=== PATIENT | male | born 1985 | race Caucasian/White ===

== ENCOUNTER 2016-11-13 22:19 | Emergency (ER) | payer MEDICAID ==
[2016-11-13 22:35] VITALS: TEMP 98.1
[2016-11-13 23:40] LABS: % IMMATURE GRANULYOCYTES 0.4 % (0.0-1.1); ABSOLUTE IMMATURE GRANULOCYTES 0.03 10^3/uL (0.00-0.10); ADD DIFF? NO; ADD MORPH? NO; ADD SCAN? NO; ATYPICAL LYMPHOCYTE FLAG 30 (0-99); FRAGMENT RBC FLAG 0 (0-99); HEMATOCRIT 40.5 % (40.0-51.0); LEFT SHIFT FLG 0 (0-99); LIPEMIA HEMOLYSIS FLAG 90 (0-99); MEAN CELL HEMOGLOBIN 33.2 pg (27.9-34.1); MEAN CELL VOLUME 89.6 fL (81.5-99.8); MEAN PLATELET VOLUME 9.1 fL (8.7-11.7); PLATELET CLUMPS FLAG 10 (0-99); PLATELET COUNT 181 10^3/uL (150-400); RED BLOOD CELL COUNT 4.52 10^6/uL (4.40-6.38); RED CELL DISTRIBUTION WIDTH 12.2 % (11.5-15.2)
[2016-11-13 23:49] LABS: ANION GAP 24 mEq/L (8-16); CALCIUM 9.1 mg/dL (8.5-10.4); CARBON DIOXIDE 18 mEq/l (22-31); CHLORIDE 102 mEq/L (97-110); CREATININE 0.8 mg/dL (0.7-1.3); GLOMERULAR FILTRATION RATE > 60; GLUCOSE 113 mg/dL (70-100); POTASSIUM 3.8 mEq/L (3.5-5.2); SODIUM 144 mEq/L (134-144)
[2016-11-13] MEDS ORDERED: IOPAMIDOL (ISOVUE-300) 100 ML BTL ONE (23:59)
[2016-11-14 00:19] VITALS: BP 110/82; PULSE 82; RESP 15; O2SAT 95
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
== END 2016-11-14 00:39 | disposition home or self-care (01) ==
LOC: EDUNIT#
DX: S20.312A Abrasion of left front wall of thorax, initial encounter (principal); F17.200 Nicotine dependence, unspecified, uncomplicated; Y08.89XA Assault by other specified means, initial encounter
CPT/HCPCS: Q9967

== ENCOUNTER 2016-11-25 14:36 | Emergency (ER) | payer MEDICAID ==
[2016-11-25 14:44] VITALS: BP 102/59; RESP 20
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
[2016-11-25 16:21] VITALS: PULSE 77; TEMP 97.9; O2SAT 97
== END 2016-11-25 16:21 | disposition home or self-care (01) ==
DX: R07.89 Other chest pain (principal); F17.200 Nicotine dependence, unspecified, uncomplicated

== ENCOUNTER 2017-02-09 19:44 | Emergency (ER) | payer MEDICAID ==
[~2017-02-09 19:44] MED LIST: chlordiazePOXIDE 25 MG CAP PO SCH
--- NOTE | 2017-02-09 20:14 | EDPHY ---
H & P Stated Complaint: ETOH WITHDRAWL, LAST DRINK 9 HR AGO, ANXIOUS,KHAN,NAUSEA Time Seen by Provider: 02/09/17 20:14 HPI/ROS: CHIEF COMPLAINT: Anxiety, nausea with concurrent alcohol withdrawal HISTORY OF PRESENT ILLNESS: The patient has a history of chronic alcohol dependence. He typically has been drinking 12 beers today. He presents to the ED today with symptoms of alcohol withdrawal including anxiety, tremor, nausea and retching. The patient denies fever or acute abdominal pain. The patient denies suicidal or homicidal ideation. The patient presents requesting medications for assistance in managing his symptoms. The patient reports that he currently uses trazodone on a as needed basis for insomnia. He is attempting to establish psychiatric care and [place] for his alcohol dependence and symptoms of anxiety. REVIEW OF SYSTEMS: A comprehensive 10 point review of systems is otherwise negative aside from elements mentioned in the history of present illness. Source: Patient Exam Limitations: No limitations - Personal History Current Tetanus/Diphtheria Vaccine: Yes Tetanus Vaccine Date: 2011 - Medical/Surgical History Hx Asthma: No Hx Chronic Respiratory Disease: No Hx Diabetes: No Hx Cardiac Disease: No Hx Renal Disease: No Hx Cirrhosis: No Hx Alcoholism: No Hx HIV/AIDS: No Hx Splenectomy or Spleen Trauma: No Other PMH: anxiety, inguinal hernia repair, ETOH - Social History Smoking Status: Light smoker - Physical Exam Exam: General Appearance: Anxious, no acute distress Eyes: Pupils equal and round no pallor or injection ENT, Mouth: Mucous membranes moist Respiratory: There are no retractions, lungs are clear to auscultation Cardiovascular: Regular rate and rhythm Gastrointestinal: Abdomen is soft and nontender, no masses, bowel sounds normal Neurological: Slightly tremulous, alert and oriented x4, cooperative, 5/5 strength all 4 extremities Skin: Warm and dry, no rashes Musculoskeletal: Neck is supple nontender Extremities: symmetrical, full range of motion Psychiatric: Patient is oriented X 3, there is no agitation, anxious, denies suicidal or homicidal ideation Constitutional: Initial Vital Signs Temperature (C) 36.5 C 02/09/17 19:53 Heart Rate 100 02/09/17 19:53 Respiratory Rate 22 H 02/09/17 19:53 Blood Pressure 98/79 L 02/09/17 19:53 O2 Sat (%) 95 02/09/17 19:53 O2 Delivery Mode Room Air Allergies/Adverse Reactions: penicillin G [Penicillin G] Allergy (Verified 02/09/17 19:51) Home Medications: Medication Instructions Recorded Gabapentin 11/13/16 traZODone 11/13/16 hydrOXYzine HCL 02/09/17 Medical Decision Making ED Course/Re-evaluation: The patient presents to the ED with symptoms consistent with mild alcohol withdrawal. The patient is in no acute distress. He received 2 mg of oral Ativan and 4 mg of Zofran orally. The patient [facility] of his alcohol withdrawal this evening. Patient will be discharged to their with a Librium prepack. The patient was re-evaluated at 9:00 p.m.. He is feeling much better after receiving oral medications. He has had no vomiting in the emergency department. He is not hallucinating he has no evidence of severe withdrawal, seizure or delirium tremens. Differential Diagnosis: Differential diagnosis considered includes alcohol withdrawal, withdrawal seizure, delirium tremens, alcohol dependence - Data Points Medications Given: Discontinued Medications Chlordiazepoxide HCl (Librium) 50 mg PO EDNOW ONE Stop: 02/09/17 20:24 Last Admin: 02/09/17 20:24 Dose: 50 mg Lorazepam (Ativan) 2 mg PO ONCE ONE Stop: 02/09/17 20:21 Last Admin: 02/09/17 20:22 Dose: 2 mg Ondansetron HCl (Zofran Odt) 4 mg PO EDNOW ONE Stop: 02/09/17 20:20 Last Admin: 02/09/17 20:23 Dose: 4 mg Departure - Departure Disposition: Home, Routine, Self-Care Clinical Impression: Alcohol withdrawal Condition: Good Instructions: Alcohol Withdrawal (ED) Additional Instructions: 1. Please go to the [facility] for further assistance with your alcohol withdrawal and alcohol dependence. 2. You have been given the contact number for [facility]. They have a 24 hour walk-in clinic and would be available to provide you assistance with treatment of an anxiety disorder. 3. Please return to the ED for markedly worsening symptoms, severe pain, vomiting, thoughts of harming yourself or others, worsening depression/anxiety or other concerns. Referrals: [facility] [Outside] - As per Instructions
[2017-02-09] MEDS ORDERED: ONDANSETRON DISINTEGRATING 4 MG TAB PO ONE (20:19)
[2017-02-09] MEDS ORDERED: chlordiazePOXIDE 25 MG CAP ONE (20:20)
[2017-02-09] MEDS ORDERED: LORazepam 1 MG TAB PO ONE (20:20)
[2017-02-09] MEDS ORDERED: LORazepam 1 MG TAB ONE (20:21)
[2017-02-09] MEDS ORDERED: chlordiazePOXIDE 25 MG CAP PO ONE (20:23)
[2017-02-09] MEDS ORDERED: CHLORDIAZEPOXIDE 25MG PREPK#6 BTL TAKEHOME ONE (20:34)
[2017-02-09 22:01] VITALS: BP 149/88; PULSE 92; RESP 18; TEMP 98.6; O2SAT 96
== END 2017-02-09 21:59 | disposition home or self-care (01) ==
DX: F10.239 Alcohol dependence with withdrawal, unspecified (principal); F17.200 Nicotine dependence, unspecified, uncomplicated

== ENCOUNTER 2017-02-11 17:42 | Emergency (ER) | payer MEDICAID ==
[2017-02-11 17:50] VITALS: RESP 18
--- NOTE | 2017-02-11 18:48 | EDPHY ---
H & P Stated Complaint: Sent to [facility] on Wednesday but "didnt get my librium". Detoxing. Time Seen by Provider: 02/11/17 18:48 HPI/ROS: CHIEF COMPLAINT: Anxiety HISTORY OF PRESENT ILLNESS: The patient was in the emergency department 2 days ago with reported alcohol withdrawal. He was [facility] to the [facility] with a prepack for Librium. He has been at that facility for the past 2 days. The patient reportedly became quite agitated when he would not get additional medications and left the facility today. The patient presents to the ED complaining of symptoms of anxiety and reported tremor. He denies any vomiting or hallucinations. The patient denies any additional acute complaints. REVIEW OF SYSTEMS: A comprehensive 10 point review of systems is otherwise negative aside from elements mentioned in the history of present illness. Source: Patient - Personal History Current Tetanus Diphtheria and Acellular Pertussis (TDAP): Yes Tetanus Vaccine Date: 2011 - Medical/Surgical History Hx Asthma: No Hx Chronic Respiratory Disease: No Hx Diabetes: No Hx Cardiac Disease: No Hx Renal Disease: No Hx Cirrhosis: No Hx Alcoholism: Yes Hx HIV/AIDS: No Hx Splenectomy or Spleen Trauma: No Other PMH: anxiety, inguinal hernia repair, ETOH - Social History Smoking Status: Light smoker - Physical Exam Exam: General Appearance: Alert, no distress Eyes: Pupils equal and round no pallor or injection ENT, Mouth: Mucous membranes moist Respiratory: There are no retractions, lungs are clear to auscultation Cardiovascular: Regular rate and rhythm Gastrointestinal: Abdomen is soft and nontender, no masses, bowel sounds normal Neurological: Very fine tremor, mentation appropriate, 5/5 strength noted all 4 extremities Skin: Warm and dry, no rashes Musculoskeletal: Neck is supple nontender Extremities: symmetrical, full range of motion Constitutional: Initial Vital Signs Temperature (C) 36.6 C 02/11/17 17:48 Heart Rate 80 02/11/17 17:48 Respiratory Rate 18 02/11/17 17:48 Blood Pressure 117/77 02/11/17 17:48 O2 Sat (%) 96 02/11/17 17:48 O2 Delivery Mode Room Air Allergies/Adverse Reactions: penicillin G [Penicillin G] Allergy (Verified 02/09/17 19:51) Home Medications: Medication Instructions Recorded Gabapentin 11/13/16 traZODone 11/13/16 chlordiazePOXIDE [Librium 25 mg 25 mg PO TID PRN #6 cap 02/09/17 (*)] hydrOXYzine HCL 02/09/17 Medical Decision Making ED Course/Re-evaluation: The patient presents to the ED after he was not given Librium at the [facility]. I believe the patient is primarily presenting with symptoms of anxiety. His CIWA score is 2 at best. The patient has no evidence of delirium terms. The patient's vital signs are stable. The patient was given 50 mg of oral Librium since he cannot return to the [facility] this evening. The patient tells me that he can stay with his mother in [place] this evening. The patient has also been given the contact number for [facility] walk-in clinic. The patient is advised that further treatment for anxiety will need to be through [facility] or [facility]. The patient is advised to return to the emergency department for any vomiting, altered mental status, hallucinations or other concerns. Differential Diagnosis: Differential diagnosis considered includes alcohol withdrawal syndrome, alcohol withdrawal seizure, delirium tremens, anxiety - Data Points Medications Given: Discontinued Medications Chlordiazepoxide HCl (Librium) 50 mg PO EDNOW ONE Stop: 02/11/17 19:27 Last Admin: 02/11/17 19:30 Dose: 50 mg Departure - Departure Disposition: Home, Routine, Self-Care Condition: Good Instructions: Alcohol Withdrawal (ED) Additional Instructions: Please go to the [facility] for further assistance with alcohol dependence. You have been given the contact number for [facility] regarding your anxiety. Referrals: [facility]UNKNOWN [Other] - As per Instructions
[2017-02-11] MEDS ORDERED: chlordiazePOXIDE 25 MG CAP PO ONE (19:26)
[2017-02-11 19:41] VITALS: BP 113/72; PULSE 74; TEMP 98.6; O2SAT 97
== END 2017-02-11 19:41 | disposition home or self-care (01) ==
DX: F41.9 Anxiety disorder, unspecified (principal); F10.239 Alcohol dependence with withdrawal, unspecified; F17.200 Nicotine dependence, unspecified, uncomplicated

== ENCOUNTER → 2017-12-28 | Outpatient (CLI) | payer MEDICAID | LOC: FIMAGING 14:52 | PROVIDERS: ATTEND Internal Medicine | DX: R51 Headache (principal); F10.10 Alcohol abuse, uncomplicated ==